=== PATIENT | male | born 1975 | race Caucasian/White ===

== ENCOUNTER 2017-06-17 10:00 | Emergency (ER) | payer SELFPAY ==
[~2017-06-17] VITALS: Ht 182.9 cm; Wt 75.0 kg
[2017-06-17 10:02] VITALS: BP 123/77; PULSE 78; RESP 20; TEMP 99; O2SAT 99
--- NOTE | 2017-06-17 11:05 | PD ---
HPI Chief Complaint: Back/ Neck Pain or Injury Time Seen by Provider: 10:25 Travel History International Travel<30 days: No Contact w/Intl Traveler<30days: No Traveled to known affect area: No History of Present Illness HPI This is a 41-year-old male who presents to the emergency department reporting back discomforts tingling on for 1 week, worsening, starting in his low back, radiating all over his back and into his neck, worse in the mornings improved with movement. He says he feels very stiff and sometimes his range of motion is limited. He took a Flexeril from a friend yesterday which helped him sleep it didn't really help his pain. He denies any loss of his bowels or his bladder. He denies any history of IV drug use. He is also reporting some dysuria and he recently had unprotected sex and is concerned that he may have Trichomonas or Zika virus. History Past Surgical History Surgical History: No Previous Surgery Social History Alcohol Use: Yes (daily ) Tobacco Use: Yes Allergies-Medications (Allergen,Severity, Reaction): Coded Allergies: No Known Allergies (Unverified , 06/17/17) Reported Meds & Prescriptions Reported Meds & Active Scripts Active No Active Prescriptions or Reported Medications Review of Systems General / Constitutional: No: Fever, Chills Physical Exam Narrative GENERAL: Well-appearing, no acute distress, nontoxic SKIN: Warm and dry. HEAD: Atraumatic. Normocephalic. ENT: No nasal bleeding or discharge. Moist mucous membranes MUSCULOSKELETAL: No obvious deformities. No clubbing. No cyanosis. No edema. NEUROLOGICAL: Awake and alert. No obvious cranial nerve deficits. Motor grossly within normal limits. Normal speech. PSYCHIATRIC: Appropriate mood and affect; insight and judgment normal. Data Data Last Documented VS Vital Signs Date Time Temp Pulse Resp B/P (MAP) Pulse Ox O2 Delivery O2 Flow Rate FiO2 06/17/17 10:02 99.0 78 20 123/77 (92) 99 Room Air [facility] Medical Screen Exam Complete: Yes Emergency Medical Condition: No Plan This is a 41-year-old male who presents to the emergency department with subacute back pain with no red flags for cauda equina syndrome or epidural abscess. He also has complaints of possible STD. I think he most benefit from referral to primary care physician. Medical screening exam was completed and he was given a referral to [facility]. Primary Impression: Back pain Qualified Codes: M54.9 - Dorsalgia, unspecified; G89.29 - Other chronic pain Scripts No Active Prescriptions or Reported Meds Disposition: 07 EDGO-ED USE ONLY Mery Parnell MD Jun 17, 2017 11:05
== END 2017-06-17 10:52 | disposition left against medical advice (07) ==
LOC: NEPD 10:00
DX: M54.9 Dorsalgia, unspecified (principal); G89.29 Other chronic pain
CPT/HCPCS: 99281

== ENCOUNTER 2017-08-24 17:08 | Observation (INO) | payer OTHER ==
[~2017-08-24] VITALS: Ht 180.3 cm; Wt 75.0 kg
[2017-08-24 17:26] VITALS: BP 144/88; PULSE 128; RESP 18; O2SAT 100
[2017-08-24 17:29] VITALS: BP 144/88; PULSE 114; RESP 18; TEMP 99.2; O2SAT 99
--- NOTE | 2017-08-24 17:29 | PD ---
HPI Chief Complaint: palpitations Time Seen by Provider: 17:18 Travel History International Travel<30 days: No Contact w/Intl Traveler<30days: No Traveled to known affect area: No History of Present Illness HPI 42-year-old male presents Emergency Department via EMS with reports of palpitations and weakness, with reports of atrial fibrillation with RVR on EKG. Patient states long history of anxiety and history of palpitations in the past. Patient was sent for some blood work for some chronic joint pain that he' s been treated with prednisone for since June by his PCP. He went for some blood work to rule out autoimmune disease. He was at that time that he felt weak and EKG was performed showing A. fib with RVR. Patient was given 20 mg diltiazem in the ambulance with some improvement with a rate down to 120. He currently denies chest pain or feels short of breath and anxious. He states he treats his anxiety with marijuana, and drinks 5-6 alcoholic beverages nightly. Patient denies any history of seizure. PFSH Past Medical History Anxiety: Yes Diminished Hearing: No Social History Alcohol Use: Yes (daily ) Tobacco Use: Yes Substance Use: Yes (marijuana) Allergies-Medications (Allergen,Severity, Reaction): Coded Allergies: No Known Allergies (Unverified Allergy, Unknown, 08/24/17) Reported Meds & Prescriptions Reported Meds & Active Scripts Active Reported Prednisone 10 Mg Tab 10 Mg PO DAILY Review of Systems Except as stated in HPI: all other systems reviewed are Neg General / Constitutional: No: Fever Eyes: No: Visual changes HENT: No: Headaches Cardiovascular: Positive: Palpitations, Tachycardia, Dyspnea on exertion, No: Chest Pain or Discomfort, Irregular Rhythm, Diaphoresis, Syncope, Varicosities, Edema, Cyanosis, Varicosities, Phlebitis, Claudication Respiratory: No: Shortness of Breath Gastrointestinal: No: Abdominal Pain Genitourinary: No: Dysuria Musculoskeletal: No: Pain Skin: No Rash Neurologic: No: Weakness Psychiatric: No: Depression Endocrine: No: Polydipsia Hematologic/Lymphatic: No: Easy Bruising Physical Exam Narrative GENERAL: Patient appears anxious but otherwise no acute distress. SKIN: Warm and dry. Normal color. Normal turgor. No diaphoresis. HEAD: Atraumatic. Normocephalic. EYES: Pupils equal and round. No scleral icterus. No injection or drainage. ENT: No nasal bleeding or discharge. Mucous membranes pink and moist. Pharynx is clear. Airway is patent. NECK: Trachea midline. Supple nontender. CARDIOVASCULAR: Tachycardic rate and regular rhythm. No murmurs appreciated. RESPIRATORY: No accessory muscle use. Clear to auscultation. Breath sounds equal bilaterally. GASTROINTESTINAL: Abdomen soft, non-tender, nondistended. Hepatic and splenic margins not palpable. MUSCULOSKELETAL: Extremities without clubbing, cyanosis, or edema. No obvious deformities. NEUROLOGICAL: Awake and alert. No obvious cranial nerve deficits. Motor grossly within normal limits. Five out of 5 muscle strength in the arms and legs. Normal speech. PSYCHIATRIC: Appropriate mood and affect; insight and judgment normal. Data Data Last Documented VS Vital Signs Date Time Temp Pulse Resp B/P (MAP) Pulse Ox O2 Delivery O2 Flow Rate FiO2 08/24/17 18:08 101 124/91 (102) 08/24/17 17:29 99 Room Air 08/24/17 17:29 99.2 18 Orders Orders Electrocardiogram (08/24/17 17:19) Ckmb (Isoenzyme) Profile (08/24/17 17:19) Complete Blood Count With Diff (08/24/17 17:19) Comprehensive Metabolic Panel (08/24/17 17:19) Magnesium (Mg) (08/24/17 17:19) Prothrombin Time / Inr (Pt) (08/24/17 17:19) Act Partial Throm Time (Ptt) (08/24/17 17:19) Troponin I (08/24/17 17:19) Chest, Single Ap (08/24/17 17:19) Ecg Monitoring (08/24/17 17:19) Bilateral Bp Monitoring (08/24/17 17:19) Iv Access Insert/Monitor (08/24/17 17:19) Oximetry (08/24/17 17:19) Oxygen Administration (08/24/17 17:19) Aspirin Chew (Aspirin Chew) (08/24/17 17:30) Sodium Chloride 0.9% Flush (Ns Flush) (08/24/17 17:30) Metoprolol Tartrate Inj (Lopressor Inj) (08/24/17 17:30) Sodium Chlor 0.9% 1000 Ml Inj (Ns 1000 M (08/24/17 17:30) Urinalysis - C+S If Indicated (08/24/17 18:21) Drug Screen, Random Urine (08/24/17 18:21) Thyroid Stimulating Hormone (08/24/17 18:21) Lorazepam (Ativan) (08/24/17 18:45) Heparin Inj (Heparin Inj) (08/24/17 18:45) Heparin-D5w 25,000 U/250 Ml (Heparin-D5w (08/24/17 18:45) Act Partial Throm Time (Ptt) (08/24/17 18:42) Prothrombin Time / Inr (Pt) (08/24/17 18:42) Cbc No Diff, Includes Plts (08/24/17 18:42) Cbc No Diff, Includes Plts (08/27/17 06:00) Act Partial Throm Time (Ptt) (08/25/17 01:42) Occult Blood (Hemoccult) Stool (08/24/17 18:42) Diltiazem (Cardizem) (08/24/17 19:00) Potassium Chloride (Kcl) (08/24/17 19:15) Labs Laboratory Tests Test 08/24/17 17:50 White Blood Count 16.1 TH/MM3 Red Blood Count 4.02 MIL/MM3 Hemoglobin 13.9 GM/DL Hematocrit 39.5 % Mean Corpuscular Volume 98.3 FL Mean Corpuscular Hemoglobin 34.6 PG Mean Corpuscular Hemoglobin Concent 35.2 % Red Cell Distribution Width 14.2 % Platelet Count 302 TH/MM3 Mean Platelet Volume 7.2 FL Neutrophils (%) (Auto) 71.3 % Lymphocytes (%) (Auto) 18.6 % Monocytes (%) (Auto) 9.2 % Eosinophils (%) (Auto) 0.3 % Basophils (%) (Auto) 0.6 % Neutrophils # (Auto) 11.5 TH/MM3 Lymphocytes # (Auto) 3.0 TH/MM3 Monocytes # (Auto) 1.5 TH/MM3 Eosinophils # (Auto) 0.0 TH/MM3 Basophils # (Auto) 0.1 TH/MM3 CBC Comment DIFF FINAL Differential Comment Prothrombin Time 10.6 SEC Prothromb Time International Ratio 1.0 RATIO Activated Partial Thromboplast Time 26.1 SEC Blood Urea Nitrogen 16 MG/DL Creatinine 0.79 MG/DL Random Glucose 81 MG/DL Total Protein 7.6 GM/DL Albumin 3.5 GM/DL Calcium Level 8.9 MG/DL Magnesium Level 2.0 MG/DL Alkaline Phosphatase 73 U/L Aspartate Amino Transf (AST/SGOT) 25 U/L Alanine Aminotransferase (ALT/SGPT) 22 U/L Total Bilirubin 0.6 MG/DL Sodium Level 138 MEQ/L Potassium Level 3.2 MEQ/L Chloride Level 101 MEQ/L Carbon Dioxide Level 26.3 MEQ/L Anion Gap 11 MEQ/L Estimat Glomerular Filtration Rate 107 ML/MIN Total Creatine Kinase 62 U/L Troponin I LESS THAN 0.02 NG/ML [facility] Medical Decision Making Medical Screen Exam Complete: Yes Emergency Medical Condition: Yes Medical Record Reviewed: Yes Differential Diagnosis Palpitations. Atrial fibrillation. Atrial flutter. Anxiety. Electrolyte imbalance. Hyperthyroidism. EtOH withdrawal. Narrative Course Patient is medically stable at time of exam. EKG shows atrial fibrillation with rapid RVR rate of 111. This is reviewed with Dr. Wheeler. Patient is given metoprolol 5 mg 3 IV. Labs ordered including CBC, CMP, cardiac panel, coagulation studies. Urinalysis and urine drug screen, as well as TSH. Repeat EKG shows continued atrial fibrillation with improvement in his ventricular rate of 91. CBC shows leukocytosis of 16.1. Otherwise no acute findings. Coagulation studies are unremarkable. CMP is unremarkable except potassium of 3.2. First troponin is less than 0.02 Urine tox screen is pending. Patient was discussed with Dr. Wheeler, who recommends 90 mg diltiazem by mouth as well as 1 mg lorazepam by mouth. Patient currently rate controlled, but was symptomatic earlier today Patient is given heparin bolus and IV, and is to be admitted for new onset atrial fibrillation and need for anticoagulation. Cardiology consult is also recommended. Diagnosis Primary Impression: New onset atrial fibrillation Admitting Information Admitting Physician Requests: Observation Condition: Stable Melvin Velázquez Aug 24, 2017 17:29
[2017-08-24] MEDS ORDERED: ASPIRIN 81 MG CHEW TAB PO ONE (17:30)
[2017-08-24] MEDS ORDERED: SODIUM CHLOR 0.9% 1000 ML INJ 1,000 ML IV ONE (17:30)
[2017-08-24] MEDS ORDERED: SODIUM CHLORIDE 0.9% FLUSH 10 ML FLUSH IVF PRN (17:30)
--- NOTE | 2017-08-24 17:40 | RADRPT ---
EXAM DATE/TIME: 08/24/2017 17:23 [place] COMPARISON: No previous studies available for comparison. INDICATIONS : Short of breath. Chest pain. Tachycardia. MEDICAL HISTORY : None. SURGICAL HISTORY : None. ENCOUNTER: Initial ACUITY: 1 day PAIN SCORE: 2/10 LOCATION: Bilateral chest FINDINGS: A single view of the chest demonstrates the lungs to be symmetrically aerated without evidence of mas s, infiltrate or effusion. The cardiomediastinal contours are unremarkable. Osseous structures are intact. CONCLUSION: 1. No acute cardiopulmonary disease. 1. Bebeto Cervantes MD on August 24, 2017 at 17:37 Board Certified Radiologist. This report was verified electronically.
[2017-08-24] MEDS: METOPROLOL TARTRATE 5 MG/5 ML VIAL IVS SCH ×3 (17:55→18:46)
[2017-08-24 18:08] VITALS: BP 124/91; PULSE 101
[2017-08-24 18:40] LABS: AUTOMATED NEUTROPHIL # 11.5 TH/MM3 (1.8-7.7); BASOPHIL # 0.1 TH/MM3 (0-0.2); BASOPHIL % 0.6 % (0.0-2.0); EOSINOPHIL % 0.3 % (0.0-4.0); HEMATOCRIT 39.5 % (39.0-51.0); HEMOGLOBIN 13.9 GM/DL (13.0-17.0); LYMPH % 18.6 % (9.0-44.0); MEAN CELL VOLUME 98.3 FL (80.0-100.0); MEAN CORPUSCULAR HEMOGLOBIN 34.6 PG (27.0-34.0); MEAN CORPUSCULAR HGB CONC 35.2 % (32.0-36.0); MEAN PLATELET VOLUME 7.2 FL (7.0-11.0); MONO % 9.2 % (0.0-8.0); MONOCYTE # 1.5 TH/MM3 (0-0.9); NEUT % 71.3 % (16.0-70.0); PLATELET COUNT 302 TH/MM3 (150-450); RED BLOOD COUNT 4.02 MIL/MM3 (4.50-5.90); RED CELL DISTRIBUTION WIDTH 14.2 % (11.6-17.2); WHITE BLOOD COUNT 16.1 TH/MM3 (4.0-11.0)
[2017-08-24] MEDS ORDERED: DILTIAZEM HCL 90 MG TAB PO ONE (18:45)
[2017-08-24] MEDS ORDERED: HEPARIN-D5W 25,000 U/250 ML 250 ML IV PRN (18:45)
[2017-08-24] MEDS ORDERED: LORazepam 1 MG TAB PO ONE (18:45)
[2017-08-24] MEDS ORDERED: HEPARIN SODIUM - IV 10,000 UNITS/10 ML VIAL IV PUSH ONE (18:45)
[2017-08-24 18:53] LABS: PROTHROMBIN TIME - PATIENT 10.6 SEC (9.8-11.6)
[2017-08-24 18:58] LABS: ALBUMIN 3.5 GM/DL (3.4-5.0); AST (GOT) 25 U/L (15-37); BICARBONATE 26.3 MEQ/L (21.0-32.0); BLOOD UREA NITROGEN 16 MG/DL (7-18); CALCIUM 8.9 MG/DL (8.5-10.1); CHLORIDE 101 MEQ/L (98-107); CREATININE 0.79 MG/DL (0.60-1.30); GLOMERULAR FILTRATION RATE 107 ML/MIN (>89); GLUCOSE,RANDOM 81 MG/DL (74-106); SODIUM (NA) 138 MEQ/L (136-145)
[2017-08-24 19:00] LABS: ALT (GPT) 22 U/L (12-78)
[2017-08-24] MEDS ORDERED: DILTIAZEM HCL 30 MG TAB PO ONE (19:00)
[2017-08-24 19:03] LABS: ALKALINE PHOSPHATASE 73 U/L (45-117); TOTAL BILIRUBIN ADULT 0.6 MG/DL (0.2-1.0); TOTAL PROTEIN 7.6 GM/DL (6.4-8.2); TROPONIN I LESS THAN 0.02 NG/ML (0.02-0.05)
[2017-08-24] MEDS ORDERED: PRED10 PO (19:09)
[2017-08-24] MEDS ORDERED: POTASSIUM CHLORIDE 20 MEQ CONTROLLED RELEASE TAB PO ONE (19:15)
[2017-08-24] MEDS ORDERED: BISACODYL 10 MG SUPP RECTAL PRN (20:00)
[2017-08-24] MEDS ORDERED: LORazepam 2 MG/ML VIAL IV PUSH PRN ×4 (20:00)
[2017-08-24] MEDS ORDERED: LORazepam 1 MG TAB PO PRN (20:00)
[2017-08-24] MEDS ORDERED: ONDANSETRON HCL 4 MG/2 ML VIAL IVP PRN (20:00)
[2017-08-24] MEDS ORDERED: SODIUM CHLORIDE 0.9% FLUSH 10 ML FLUSH IV FLUSH PRN (20:00)
[2017-08-24] MEDS ORDERED: NALOXONE HCL 0.4 MG/ML AMP IV PUSH PRN (20:00)
[2017-08-24] MEDS ORDERED: LORazepam 2 MG TAB PO PRN (20:00)
[2017-08-24] MEDS ORDERED: SENNOSIDES 8.6 MG TAB PO PRN (20:00)
[2017-08-24] MEDS ORDERED: MAGNESIUM HYDROXIDE SUSP 30 ML CUP PO PRN (20:00)
[2017-08-24] MEDS ORDERED: FLUMAZENIL 0.5 MG/5 ML VIAL IV PUSH PRN (20:00)
[2017-08-24] MEDS ORDERED: LACTULOSE SYRUP 20 GM/30 ML CUP PO PRN (20:00)
[2017-08-24] MEDS ORDERED: METOPROLOL TARTRATE 25 MG TAB PO ONE (20:00)
[2017-08-24 20:16] VITALS: BP 142/93; PULSE 91; RESP 16; O2SAT 97
[2017-08-24] MEDS: SODIUM CHLORIDE 0.9% FLUSH 10 ML FLUSH IV FLUSH SCH (20:22)
[2017-08-24 20:45] VITALS: BP 141/87; PULSE 87; RESP 18; TEMP 99.7; O2SAT 96
[2017-08-24 20:52] LABS: AMORPHOUS SEDIMENT, URINE OCC; BILIRUBIN, URINE NEG (NEG); BLOOD, URINE NEG (NEG); GLUCOSE,URINE NEG (NEG); KETONE, URINE NEG (NEG); MUCUS URINE FEW /lpf (OCC); NITRITE,URINE NEG (NEG); URINE COLOR LIGHT-YELLOW (YELLW/STRAW); URINE LEUKOCYTE ESTERASE NEG (NEG)
[2017-08-25 00:21] VITALS: BP 93/60; PULSE 89; RESP 18; TEMP 98.4; O2SAT 97
--- NOTE | 2017-08-25 03:10 | HHI.HP ---
HPI Service [facility] Primary Care Physician Unknown Admission Diagnosis New onset Afib Diagnoses: Travel History International Travel<30 Days: No Contact w/Intl Traveler <30 Da: No Traveled to Known Affected Are: No History of Present Illness Written by KENRICK Polanco acting as scribe for [Christian] on 08/25/17 at 03:05. 42 y/o male with a history of PTSD, anxiety and etoh abuse presented to the ED with complaints of heart palpitations. He states he was at a Dr office for a follow up testing for STD that that he got from the neighbor next door and was treated with prednisone. He had been having muscle weakness, joint pain and palpitations. The patient had an ekg done in the Dr office and was told it was afib and was brought to the hospital. He was given Cardizem IV in route to the hospital by EMS. He states his Last drink was yesterday at 3 pm prior to going to the dr, he normally drinks 6-8 pints a day. Denies chest pain, sob, fever or chills. No prior history of afib. Review of Systems Except as stated in HPI: all other systems reviewed are Neg Past Family Social History Past Medical History PTSD Anxiety ETOH abuse Past Surgical History Patient denies any surgical history Reported Medications Reported Meds & Active Scripts Active Reported Prednisone 10 Mg Tab 10 Mg PO DAILY Allergies: Coded Allergies: No Known Allergies (Unverified Allergy, Unknown, 08/24/17) Active Ordered Medications Current Medications Medications (Trade) Dose Ordered Sig/Sheela Route Start Time Stop Time Status Last Admin Heparin Sodium/ Dextrose 250 ml @ 14 mls/hr TITRATE PRN IV 08/24/17 18:45 08/24/17 19:04 (Lopressor) 25 mg Q12HR PO 08/25/17 09:00 (NS Flush) 2 ml UNSCH PRN IV FLUSH 08/24/17 20:00 (NS Flush) 2 ml BID IV FLUSH 08/24/17 21:00 08/24/17 20:22 (Zofran Inj) 4 mg Q6H PRN IVP 08/24/17 20:00 (Narcan Inj) 0.4 mg UNSCH PRN IV PUSH 08/24/17 20:00 (Milk Of Magnesia Liq) 30 ml Q12H PRN PO 08/24/17 20:00 (Senokot) 17.2 mg Q12H PRN PO 08/24/17 20:00 (Dulcolax Supp) 10 mg DAILY PRN RECTAL 08/24/17 20:00 (Lactulose Liq) 30 ml DAILY PRN PO 08/24/17 20:00 (Romazicon Inj) 0.2 mg Q1M PRN IV PUSH 08/24/17 20:00 (Ativan) 1 mg Q4H PRN PO 08/24/17 20:00 (Ativan Inj) 1 mg Q4H PRN IV PUSH 08/24/17 20:00 (Ativan) 2 mg Q2H PRN PO 08/24/17 20:00 (Ativan Inj) 2 mg Q2H PRN IV PUSH 08/24/17 20:00 (Ativan Inj) 2 mg Q1H PRN IV PUSH 08/24/17 20:00 (Ativan Inj) 2 mg Q15M PRN IV PUSH 08/24/17 20:00 (Librium) 10 mg TID PO 08/25/17 09:00 Family History Patient denies any family history, no heart disease or cancer Social History Alcohol use: 6-8 pints a day Tobacco use: A few cigarettes a day Illicit drug use: Marijuana Lives alone with dog, unemployed Physical Exam Vital Signs Vital Signs Date Time Temp Pulse Resp B/P (MAP) Pulse Ox O2 Delivery O2 Flow Rate FiO2 08/25/17 00:21 98.4 89 18 93/60 (71) 97 08/24/17 20:45 99.7 87 18 141/87 (105) 96 08/24/17 20:16 91 16 142/93 (109) 97 Room Air 08/24/17 20:16 08/24/17 18:08 101 124/91 (102) 08/24/17 17:29 99 Room Air 08/24/17 17:29 99.2 114 18 144/88 (106) 99 Room Air 08/24/17 17:26 128 18 144/88 (106) 100 Physical Exam GENERAL: This is a well-nourished, well-developed patient, in no apparent distress. SKIN: No rashes, ecchymoses or lesions. Cool and dry. HEAD: Atraumatic. Normocephalic. EYES: Pupils equal round and reactive. Extraocular motions intact. ENT: Nose without bleeding, purulent drainage or septal hematoma. Airway patent. NECK: Trachea midline. No JVD or lymphadenopathy. Supple, nontender, no meningeal signs. CARDIOVASCULAR: Regular rate and rhythm without murmurs, gallops, or rubs. RESPIRATORY: Clear to auscultation. Breath sounds equal bilaterally. No wheezes , rales, or rhonchi. GASTROINTESTINAL: Abdomen soft, non-tender, nondistended. MUSCULOSKELETAL: Extremities without clubbing, cyanosis, or edema. No joint tenderness, effusion, or edema noted. No calf tenderness. NEUROLOGICAL: Awake and alert. Motor and sensory grossly within normal limits. Normal speech. Laboratory Laboratory Tests Test 08/24/17 17:50 08/24/17 20:30 08/25/17 01:39 White Blood Count 16.1 Red Blood Count 4.02 Hemoglobin 13.9 Hematocrit 39.5 Mean Corpuscular Volume 98.3 Mean Corpuscular Hemoglobin 34.6 Mean Corpuscular Hemoglobin Concent 35.2 Red Cell Distribution Width 14.2 Platelet Count 302 Mean Platelet Volume 7.2 Neutrophils (%) (Auto) 71.3 Lymphocytes (%) (Auto) 18.6 Monocytes (%) (Auto) 9.2 Eosinophils (%) (Auto) 0.3 Basophils (%) (Auto) 0.6 Neutrophils # (Auto) 11.5 Lymphocytes # (Auto) 3.0 Monocytes # (Auto) 1.5 Eosinophils # (Auto) 0.0 Basophils # (Auto) 0.1 CBC Comment DIFF FINAL Differential Comment Prothrombin Time 10.6 Prothromb Time International Ratio 1.0 Activated Partial Thromboplast Time 26.1 55.9 Blood Urea Nitrogen 16 Creatinine 0.79 Random Glucose 81 Total Protein 7.6 Albumin 3.5 Calcium Level 8.9 Magnesium Level 2.0 Alkaline Phosphatase 73 Aspartate Amino Transf (AST/SGOT) 25 Alanine Aminotransferase (ALT/SGPT) 22 Total Bilirubin 0.6 Sodium Level 138 Potassium Level 3.2 Chloride Level 101 Carbon Dioxide Level 26.3 Anion Gap 11 Estimat Glomerular Filtration Rate 107 Total Creatine Kinase 62 Troponin I LESS THAN 0.02 Thyroid Stimulating Hormone 3rd Gen 1.360 Urine Color LIGHT-YELLOW Urine Turbidity CLEAR Urine pH 8.0 Urine Specific [place] 1.010 Urine Protein NEG Urine Glucose (UA) NEG Urine Ketones NEG Urine Occult Blood NEG Urine Nitrite NEG Urine Bilirubin NEG Urine Urobilinogen LESS THAN 2.0 Urine Leukocyte Esterase NEG Urine RBC LESS THAN 1 Urine WBC 1 Urine Amorphous Sediment OCC Urine Mucus FEW Microscopic Urinalysis Comment CULT NOT INDICATED Urine Opiates Screen NEG Urine Barbiturates Screen NEG Urine Amphetamines Screen NEG Urine Benzodiazepines Screen NEG Urine Cocaine Screen NEG Urine Cannabinoids Screen POS Result Diagram: [id number] Imaging Last Impressions Chest X-Ray 08/24/17 171 Signed Impressions: Service Date/Time: Thursday, August 24, 2017 17:23 - CONCLUSION: 1. No acute cardiopulmonary disease. 1. MD Stephanie Renteria VTE Risk Assessment Stephanie VTE Risk Assessment: Mod/High Risk (score >= 2) Ceciliai Risk Assessment Model Point Value = 1 Point Value = 2 Point Value = 3 Point Value = 5 Age 41-60 Minor surgery BMI > 25 kg/m2 Swollen legs Varicose veins or History of unexplained or recurrent spontaneous Oral contraceptives or hormone replacement Sepsis (< 1 month) Serious lung disease, including pneumonia (< 1 month) Abnormal pulmonary function Acute myocardial infarction Congestive heart failure (< 1 month) History of inflammatory bowel disease Medical patient at bed rest Age 61-74 Arthroscopic surgery Major open surgery (> 45 min) Laparoscopic surgery (> 45 min) Malignancy Confined to bed (> 72 hours) Immobilizing plaster cast Central venous access Age >= 75 History of VTE Family history of VTE Factor V Leiden Prothrombin [id number] Lupus anticoagulant Anticardiolipin antibodies Elevated serum homocysteine Heparin-induced thrombocytopenia Other congenital or acquired thrombophilia Stroke (< 1 month) Elective arthroplasty Hip, pelvis, or leg fracture Acute spinal cord injury (< 1 month) Prophylaxis Regimen Total Risk Factor Score Risk Level Prophylaxis Regimen 0-1 Low Early ambulation 2 Moderate Order ONE of the following: *Sequential Compression Device (SCD) *Heparin 5000 units SQ BID 3-4 Higher Order ONE of the following medications: *Heparin 5000 units SQ TID *Enoxaparin/Lovenox 40 mg SQ daily (WT < 150 kg, CrCl > 30 mL/min) *Enoxaparin/Lovenox 30 mg SQ daily (WT < 150 kg, CrCl > 10-29 mL/min) *Enoxaparin/Lovenox 30 mg SQ BID (WT < 150 kg, CrCl > 30 mL/min) AND/OR *Sequential Compression Device (SCD) 5 or more Highest Order ONE of the following medications: *Heparin 5000 units SQ TID (Preferred with Epidurals) *Enoxaparin/Lovenox 40 mg SQ daily (WT < 150 kg, CrCl > 30 mL/min) *Enoxaparin/Lovenox 30 mg SQ daily (WT < 150 kg, CrCl > 10-29 mL/min) *Enoxaparin/Lovenox 30 mg SQ BID (WT < 150 kg, CrCl > 30 mL/min) AND *Sequential Compression Device (SCD) Assessment and Plan Problem List: (1) New onset atrial fibrillation ICD Code: I48.91 - Unspecified atrial fibrillation Status: Acute (2) ETOH abuse ICD Code: F10.10 - Alcohol abuse, uncomplicated Assessment and Plan 42 y/o male with a history of PTSD, anxiety and etoh abuse presented to the ED with complaints of heart palpitations. New onset atrial fibrillation EKG reviewed and shows afib -Consult cardiology for recommendations -Heparin drip -2d echo ordered Alcohol use -Encouraged to quit -CIWA protocol -Librium ordered -Seizure precautions DVT prophylaxis: Heparin Discussed Condition With Patient and ED physician This note was transcribed by KENRICK Wilson. I, Dr. Contreras Gonzales personally performed the history, physical exam, and medical decision making; and confirmed the accuracy of the information in the transcribed note. Authenticated by Dr. Contreras Gonzales on 08/25/17 at 06:18. Estrella Maynard Aug 25, 2017 03:10 Contreras Gonzales MD Aug 25, 2017 06:20
[2017-08-25 04:00] VITALS: PULSE 74
[2017-08-25 05:44] VITALS: BP 107/60; PULSE 73; RESP 18; TEMP 98.9; O2SAT 97
[2017-08-25 07:11] VITALS: BP 118/75; PULSE 75; RESP 22; TEMP 98.1; O2SAT 97
[2017-08-25] MEDS ORDERED: POTASSIUM CHLORIDE 20 MEQ CONTROLLED RELEASE TAB PO ONE (08:45)
--- NOTE | 2017-08-25 08:58 | HHI.PR ---
Subjective Remarks Follow up for new onset afib, palpitations. The patient reports feeling better today. Denies any chest pain, shortness of breath, or palpitations. Denies any fevers/chills. He does not recall ever having a stress test or echocardiogram. He denies any other medical complaints at this time. Objective Vitals Vital Signs Date Time Temp Pulse Resp B/P (MAP) Pulse Ox O2 Delivery O2 Flow Rate FiO2 08/25/17 07:11 98.1 75 22 118/75 (89) 97 08/25/17 05:44 98.9 73 18 107/60 (76) 97 08/25/17 04:00 74 08/25/17 00:21 98.4 89 18 93/60 (71) 97 08/24/17 20:45 99.7 87 18 141/87 (105) 96 08/24/17 20:16 91 16 142/93 (109) 97 Room Air 08/24/17 20:16 08/24/17 18:08 101 124/91 (102) 08/24/17 17:29 99 Room Air 08/24/17 17:29 99.2 114 18 144/88 (106) 99 Room Air 08/24/17 17:26 128 18 144/88 (106) 100 I/O 08/24/17 08/24/17 08/24/17 08/25/17 08/25/17 08/25/17 07:00 15:00 23:00 07:00 15:00 23:00 Intake Total 1000 ml Output Total 450 ml Balance 1000 ml -450 ml Intake IV Total 1000 ml Output Urine Total 450 ml Result Diagram: 08/24/17174908/24/171749 Imaging Last Impressions Chest X-Ray 08/24/17 171 Signed Impressions: Service Date/Time: Thursday, August 24, 2017 17:23 - CONCLUSION: 1. No acute cardiopulmonary disease. 1. Bebeto Cervantes MD Objective Remarks GENERAL: Well-nourished, well-developed middle aged male patient in [facility]. SKIN: Warm and dry. No rash. HEENT: Normocephalic. Atraumatic.Pupils equal and round. Mucous membranes pink and moist. CARDIOVASCULAR: Regular rate and rhythm. S1, S2 noted. No murmur appreciated. RESPIRATORY: No accessory muscle use. Clear to auscultation. Breath sounds equal bilaterally. GASTROINTESTINAL: Abdomen soft, non-tender, nondistended. Normoactive bowel sounds x4. MUSCULOSKELETAL: No obvious deformities. Extremities without clubbing, cyanosis , or edema. NEUROLOGICAL: Awake and alert. No obvious cranial nerve deficits. Motor grossly within normal limits. Normal speech. PSYCHIATRIC: Appropriate mood and affect; insight and judgment normal. Medications and IVs Current Medications Medications (Trade) Dose Ordered Sig/Sheela Route Start Time Stop Time Status Last Admin (NS Flush) 2 ml UNSCH PRN IV FLUSH 08/24/17 20:00 (NS Flush) 2 ml BID IV FLUSH 08/24/17 21:00 08/24/17 20:22 (Zofran Inj) 4 mg Q6H PRN IVP 08/24/17 20:00 (Narcan Inj) 0.4 mg UNSCH PRN IV PUSH 08/24/17 20:00 (Milk Of Magnesia Liq) 30 ml Q12H PRN PO 08/24/17 20:00 (Senokot) 17.2 mg Q12H PRN PO 08/24/17 20:00 (Dulcolax Supp) 10 mg DAILY PRN RECTAL 08/24/17 20:00 (Lactulose Liq) 30 ml DAILY PRN PO 08/24/17 20:00 (Romazicon Inj) 0.2 mg Q1M PRN IV PUSH 08/24/17 20:00 (Ativan) 1 mg Q4H PRN PO 08/24/17 20:00 (Ativan Inj) 1 mg Q4H PRN IV PUSH 08/24/17 20:00 (Ativan) 2 mg Q2H PRN PO 08/24/17 20:00 (Ativan Inj) 2 mg Q2H PRN IV PUSH 08/24/17 20:00 (Ativan Inj) 2 mg Q1H PRN IV PUSH 08/24/17 20:00 (Ativan Inj) 2 mg Q15M PRN IV PUSH 08/24/17 20:00 (Librium) 10 mg TID PO 08/25/17 09:00 (KCl) 40 meq ONCE ONCE PO 08/25/17 08:45 08/25/17 08:46 UNV (Cardizem Cd) 120 mg DAILY PO 08/25/17 09:00 UNV A/P Problem List: (1) New onset atrial fibrillation ICD Code: I48.91 - Unspecified atrial fibrillation Status: Acute (2) ETOH abuse ICD Code: F10.10 - Alcohol abuse, uncomplicated Assessment and Plan 42 y/o male with a history of PTSD, anxiety and etoh abuse presented to the ED with complaints of heart palpitations. New onset atrial fibrillation: EKG reviewed and shows afib. Suspect precipitated by heavy alcohol use. ChadsVasc score 0. -Initial troponin negative, check 2nd set cardiac enzymes to rule out ACS -Consult cardiology, discussed with Dr. Neville, recommends Nuclear Stress Test if 2nd troponin negative -Continue on Heparin drip for now -2d echo ordered, however can be done as outpatient if trop and stress test unremarkable Alcohol use -Counseled on cessation -[facility] protocol -Librium ordered -Seizure precautions -strongly encouraged to seek treatment at [facility], patient is familiar with this DVT prophylaxis: Heparin Discharge Planning 0850hrs: Possible discharge today if nuclear stress test unremarkable. 1600hrs: Nuclear stress test with small fixed perfusion defect in the apex, could represent apical thinning or an old myocardial scar; mild globally depressed ejection fraction of 47%. No clinical signs of CHF. Will await echocardiogram prior to discharge. 1800hrs: Echocardiogram resulted, EF 60-65%, normal left ventricular diastolic and systolic function. Will discharge home. Discharge patient to home Condition on discharge: Improved Heart Healthy Diet as tolerated Ad Kerri activity Rx written: Cardizem CD 120mg daily Follow-up with primary care physician, cardiology, and drug/alcohol rehab Mariela Albert PA-C Aug 25, 2017 08:58
[2017-08-25] MEDS ORDERED: METOPROLOL TARTRATE 25 MG TAB PO SCH (09:00)
[2017-08-25] MEDS ORDERED: DILTIAZEM-CD 120 MG CAP ER PO SCH (09:00)
[2017-08-25] MEDS: SODIUM CHLORIDE 0.9% FLUSH 10 ML FLUSH IV FLUSH SCH (09:06)
--- NOTE | 2017-08-25 09:24 | MB ---
cc: LILLY ZAPIEN MD DATE OF CONSULTATION: 08/25/2017 REASON FOR CONSULTATION Atrial fibrillation. HISTORY OF PRESENT ILLNESS Mr. Douglas is a 42-year-old man who does have a history of PTSD, anxiety and ETOH abuse. He presented with an elevated heart rate. He was seen by his PCP who told him it was atrial fibrillation and he should go to the hospital. The patient other than the high heart rate denies any cardiac complaints. He does note that he drinks 6-8 alcoholic beverages a day. PAST MEDICAL HISTORY 1. PTSD. 2. Anxiety. 3. ETOH abuse. 4. Arthritis. MEDICATIONS Outpatient medications include prednisone. ALLERGIES No known drug allergies. REVIEW OF SYSTEMS Except for some hand discomfort all 12 systems are negative except as mentioned in the HPI. SOCIAL HISTORY The patient does drink as above. He also smokes. He lives alone and is currently unemployed. FAMILY HISTORY Negative for CAD. PHYSICAL EXAMINATION VITAL SIGNS: Currently are 98.1, 75, 22, 118/75. GENERAL: In general he is a well-appearing young man who is no apparent distress. NECK: Free from JVD. LUNGS: Bilaterally clear to auscultation. CARDIOVASCULAR: Normal S1 and S2. No murmurs, rubs or gallops are appreciated. ABDOMEN: Soft. EXTREMITIES: Free from edema. TELEMETRY Telemetry currently shows normal sinus rhythm. EKG EKG from admission does show atrial fibrillation with rapid ventricular rate. LABORATORY Lab values are significant for white count 16.1, potassium 3.2, troponin less than 0.02, TSH 1.36. IMPRESSIONS/RECOMMENDATIONS 1. New-onset atrial fibrillation: The patient is in sinus today. The most likely etiology of the atrial fibrillation is his alcohol and I did discuss this with him. He has had only one cardiac enzyme and we will obtain another enzyme before doing a nuclear stress test today. He can have an outpatient echo. His TSH is normal. His CHADS-VASc score is 0, thus anticoagulation would be relatively contraindicated with his history of alcoholism. For rate control I would place him on Cardizem CD 120 mg a day. If the nuclear stress test is nonischemic he can be discharged home and follow-up with his PCP. 2. ETOH: The patient was counseled to stop drinking 3. Tobacco abuse: The patient was counseled to quit smoking. 4. Elevated white count: This is likely from his STD that he has been treated for. Marvin Mercado/LM /8:27 AM /9:12 AM
[2017-08-25 11:14] LABS: HEMATOCRIT 38.1 % (39.0-51.0); MEAN CELL VOLUME 99.3 FL (80.0-100.0); MEAN CORPUSCULAR HEMOGLOBIN 33.9 PG (27.0-34.0); MEAN CORPUSCULAR HGB CONC 34.2 % (32.0-36.0); MEAN PLATELET VOLUME 6.9 FL (7.0-11.0); PLATELET COUNT 248 TH/MM3 (150-450); RED BLOOD COUNT 3.84 MIL/MM3 (4.50-5.90); RED CELL DISTRIBUTION WIDTH 13.8 % (11.6-17.2); WHITE BLOOD COUNT 12.6 TH/MM3 (4.0-11.0)
[2017-08-25] MEDS ORDERED: CARD120C4 PO (12:51)
--- NOTE | 2017-08-25 12:52 | HHI.DCPOC ---
Discharge Care Plan Diagnosis: (1) Alcohol abuse (2) New onset atrial fibrillation Goals to Promote Your Health * To prevent worsening of your condition and complications * To maintain your health at the optimal level Directions to Meet Your Goals Take your medications as prescribed Follow your dietary instruction Follow activity as directed Keep your appointments as scheduled Take your immunizations and boosters as scheduled If your symptoms worsen call your PCP, if no PCP go to Urgent Care Center or Emergency Room Smoking is Dangerous to Your Health. Avoid second hand smoke Call the 24-hour hour crisis hotline for domestic abuse at Mariela Albert PA-C Aug 25, 2017 12:52 pm
--- NOTE | 2017-08-25 12:52 | HHI.DCPOC ---
Discharge Care Plan Diagnosis: (1) Alcohol abuse (2) New onset atrial fibrillation Goals to Promote Your Health * To prevent worsening of your condition and complications * To maintain your health at the optimal level Directions to Meet Your Goals Take your medications as prescribed Follow your dietary instruction Follow activity as directed Keep your appointments as scheduled Take your immunizations and boosters as scheduled If your symptoms worsen call your PCP, if no PCP go to Urgent Care Center or Emergency Room Smoking is Dangerous to Your Health. Avoid second hand smoke Call the 24-hour hour crisis hotline for domestic abuse at Mariela Albert PA-C Aug 25, 2017 12:52 pm
--- NOTE | 2017-08-25 12:52 | HHI.DCPOC ---
Discharge Care Plan Diagnosis: (1) Alcohol abuse (2) New onset atrial fibrillation Goals to Promote Your Health * To prevent worsening of your condition and complications * To maintain your health at the optimal level Directions to Meet Your Goals Take your medications as prescribed Follow your dietary instruction Follow activity as directed Keep your appointments as scheduled Take your immunizations and boosters as scheduled If your symptoms worsen call your PCP, if no PCP go to Urgent Care Center or Emergency Room Smoking is Dangerous to Your Health. Avoid second hand smoke Call the 24-hour hour crisis hotline for domestic abuse at Mariela Albert PA-C Aug 25, 2017 12:52 pm
[2017-08-25] MEDS ORDERED: REGADENOSON INJ 0.4 MG/5 ML SYR ONE (13:55)
--- NOTE | 2017-08-25 15:39 | RADRPT ---
EXAM DATE/TIME: 08/25/2017 12:45 [place] COMPARISON: No previous studies available for comparison. INDICATIONS : Atrial fibrillation. DOSE: 25.7 mCi Tc99m Myoview at stress. 8.2 mCi Tc99m Myoview at rest. 0.4 mg Lexiscan STRESS SYMPTOMS: Headache. EJECTION FRACTION: 47% MEDICAL HISTORY : None. SURGICAL HISTORY : None. ENCOUNTER: Initial ACUITY: 1 day PAIN SCALE: 0/10 LOCATION: chest discomfort TECHNIQUE: The patient underwent pharmacologic stress with infusion of prescribed dose. Continuous ECG tracing was monitored during stress. Gated SPECT imaging was performed after stress and conventional SPECT i maging was performed at rest. The examination was performed on a SPECT/CT scanner, both attenuation and non-corrected datasets were reviewed. FINDINGS: DISTRIBUTION: The maximum perfused segment at stress is in the inferolateral wall. PERFUSION STUDY: There is mild fixed decreased perfusion to the apex, unchanged between stress and rest. Otherwise, r egional variations of perfusion left ventricular myocardium are within 25%. The summed stress score is 5. GATED STUDY: No focal wall motion abnormality seen. Global ejection fraction is mildly depressed. CONCLUSION: 1. Small fixed perfusion defect in the apex could represent apical thinning or an old myocardial scar . 2. Mild globally depressed ejection fraction of 47%. RISK CATEGORY: Intermediate (1-3% Annual Mortality Rate) Shorty Kay MD on August 25, 2017 at 15:34 Board Certified Radiologist. This report was verified electronically.
[2017-08-25 15:41] VITALS: BP 119/74; PULSE 77; RESP 20; TEMP 99.2; O2SAT 98
--- NOTE | 2017-08-25 18:00 | ECHRPT ---
Indication: Paroxysmal atrial fibrillation CONCLUSIONS The transthoracic study is normal by two-dimensional, color flow imaging and Doppler interrogation. BP: / HR: Rhythm: MEASUREMENTS (Male / Female) Normal Values Technical Quality:Good 2D ECHO LV Diastolic Diameter PLAX 5.3 cm 4.2 - 5.9 / 3.9 - 5.3 cm LV Systolic Diameter PLAX 3.9 cm IVS Diastolic Thickness 1.1 cm 0.6 - 1.0 / 0.6 - 0.9 cm LVPW Diastolic Thickness 1.0 cm 0.6 - 1.0 / 0.6 - 0.9 cm LV Relative Wall Thickness 0.4 RV Internal Dim ED PLAX 2.0 cm M-MODE Aortic Root Diameter MM 3.6 cm LA Systolic Diameter MM 3.3 cm LA Ao Ratio MM 0.9 AV Cusp Separation MM 2.0 cm DOPPLER Mitral E Point Velocity 93.7 cm/s Mitral A Point Velocity 67.9 cm/s Mitral E to A Ratio 1.4 FINDINGS LEFT VENTRICLE Normal left ventricular size and wall thickness. The left ventricular systolic function is normal wi th an estimated ejection fraction in the range of 60-65%. Left ventricular diastolic function parameters a re normal. RIGHT VENTRICLE The right ventricular size is normal. The right ventricular systoilc function is normal. LEFT ATRIUM The left atrial size is normal. The left atrial pressure appears to be normal. RIGHT ATRIUM The right atrial size is normal. ATRIAL SEPTUM Normal atrial septal thickness without atrial level shunting by limited color doppler interrogation. AORTA The aortic root and proximal ascending aorta are not well visualized. MITRAL VALVE Structurally normal mitral valve. No mitral valve stenosis or regurgitation. AORTIC VALVE Trileaflet aortic valve. No aortic valve stenosis or regurgitation. TRICUSPID VALVE Structurally normal tricuspid valve. No tricuspid valve stenosis there is trace tricuspid valve regu rgitation. PULMONARY VALVE The pulmonary valve is not well visualized. VESSELS The inferior vena cava is normal in size. PERICARDIUM There is no pericardial effusion. Angela Neville MD, FACC (Electronically Signed) Final Date:25 August 2017 17:59
--- NOTE | 2017-08-25 20:56 | EKG ---
Date Performed: 08/24/2017 Time Performed: 17:40:32 PTAGE: 42 years EKG: ATRIAL FIBRILLATION WITH RAPID VENTRICULAR RESPONSE NO PRIOR FOR COMPARISON ABNORMAL RHYTHM ECG NO PREVIOUS TRACING DOCTOR: Angela Neville Interpretating Date/Time 08/25/2017 20:55:20
--- NOTE | 2017-08-25 20:58 | EKG ---
Date Performed: 08/24/2017 Time Performed: 18:38:14 PTAGE: 42 years EKG: ATRIAL FIBRILLATION WHEN COMPARED TO PRIOR EKG PATIENT IS NO LONGER TACHYCARDIC. ABNORMAL R HYTHM ECG PREVIOUS TRACING 08/24/2017 @ 17.40 DOCTOR: Angela Neville Interpretating Date/Time 08/25/2017 20:56:28
== END 2017-08-25 19:10 | disposition home or self-care (01) ==
LOC: NEPE 17:08 → NEDH 19:49 → NEPGCP 20:29
PROVIDERS: ADMIT Hospitalist; ATTEND Hospitalist
DX: I48.91 Unspecified atrial fibrillation (principal); F10.10 Alcohol abuse, uncomplicated; G89.29 Other chronic pain; M25.50 Pain in unspecified joint; M62.81 Muscle weakness (generalized); D72.829 Elevated white blood cell count, unspecified; F17.200 Nicotine dependence, unspecified, uncomplicated
CPT/HCPCS: 71010; 78452; 80053; 80307; 81001; 82550; 83735; 84443; 84484; 85025; 85027; 85610; 85730; 93005; 93017; 93306; 96361; 96365; 96372; 96375; 99285; A9502; G0378; J1644; J2785; J7030